=== PATIENT | female | born 1970 | race Hispanic/Latino ===

== ENCOUNTER 2020-06-09 08:24 | Inpatient (IN) | payer OTHER ==
--- OUTSIDE RECORDS SUMMARY | 2020-06-09 08:26 | XMS REPORT | Continuity of Care Document ---
:1970 Author Organization [facility] t Address [address] [place] [address] Care Team Providers Name Role Phone Melissa Gooden MD Attending Clinician Duong Logan DO Attending Clinician Doctor Unassigned, Name Attending Clinician Unavailable Problems This patient has no known problems. Allergies, Adverse Reactions, Alerts This patient has no known allergies or adverse reactions. Medications This patient has no known medications. Procedures This patient has no known procedures. Encounters Start End Encounter Admission Attending Care Care Encounter Source Date/Time Date/Time Type Type Clinicians Facility Department ID 2020-05-27 2020-05-27 [facility] [id number] 15:30:00 23:59:00 Encounter Marcelo [id number] [facility] [id number] [place] [id number] 2020-05-27 2020-05-27 [facility] Melissa Gooden [facility] [id number] 14:37:38 15:29:00 Encounter Marcelo [id number] [facility] [id number] Jenkins [id number] 2020-05-20 2020-05-20 Patient АЛЕКСАНДР Logan [id number] 00:00:00 00:00:00 Outreach Duong BENJAMIN [id number] [place] [facility] [id number] [place] [id number] 2020-05-05 2020-05-05 [facility] Melissa Gooden [facility] [id number] 11:45:00 23:59:00 Encounter Health [id number] [place] [id number] [place] [id number] Medical [address] 2020-05-05 2020-05-05 Letter Doctor RACIEL [id number] 00:00:00 00:00:00 (Out) Unassigned, YOLANDA [id number] [place] [facility] [id number] 2019-12-17 2019-12-17 Orders Doctor RACIEL [id number] 00:00:00 00:00:00 Only Unassigned, YOLANDA [id number] [place] [id number] 2019-12-06 2019-12-06 Orders Doctor RACIEL [id number] 00:00:00 00:00:00 Only Unassigned, YOLANDA [id number] [place] [facility] [id number] Results This patient has no known results.
[2020-06-09] MEDS ORDERED: AZITHROMYCIN IV 500 MG in NA CHLORIDE 0.9% 250 ML IVPB ONE (09:00)
[2020-06-09 09:03] LABS: Absolute Lymphocytes (CBC) 0.6 K/uL (0.7-4.9); Basophils % 0.1 % (0-1.3); Hematocrit 45.8 % (36.0-45.0); Lymphocytes % 5.5 % (15.3-44.8); MPV 8.9 fL (7.6-11.3); RBC Red Blood Cell Count 5.36 M/uL (3.86-4.86)
[2020-06-09 09:13] LABS: Protime INR 1.31
[2020-06-09] MEDS ORDERED: ENOXAPARIN 80 MG/0.8 ML SQ ONE (09:13)
[2020-06-09] MEDS ORDERED: ACETAMINOPHEN 500 MG TAB ONE (09:13)
[2020-06-09] MEDS ORDERED: dexAMETHasone 10 MG/ML VIAL ONE (09:13)
[2020-06-09] MEDS ORDERED: ASPIRIN 81 MG CHEWABLE TABLET ONE (09:13)
[2020-06-09] MEDS ORDERED: CEFTRIAXONE/SWI 1gm 1 GM/10 ML SYR ONE (09:14)
[2020-06-09] MEDS ORDERED: FAMOTIDINE 20 MG/2 ML VIAL IV ONE (09:14)
[2020-06-09] MEDS ORDERED: ALBUTEROL INHALER 60 PUFF/8 GM IH ONE (09:14)
--- NOTE | 2020-06-09 09:33 | ER ---
Nurse's Notes [facility] Name: Isabel Cottrell Age: 50 yrs Sex: Female : 1970 Arrival Date: 06/09/2020 Time: 08:26 Bed 7 Private MD: Diagnosis: Other viral pneumonia-BILATERAL, COVID;Hypoxemia;Dyspnea;Fever, unspecified Presentation: 06/09 08:44 Chief complaint: Patient states: COVID + on Tuesday, s/s started last Tuesday, increasing iw SOB X 2 days, was 36% on RA upon arrival , pt denies chest pain, feels very anxious , is currently on abx and steroids. Coronavirus screen: Client reports previous positive COVID test result. Ebola Screen: Patient negative for fever greater than or equal to 101.5 degrees Fahrenheit, and additional compatible Ebola Virus Disease symptoms Patient denies exposure to infectious person. Patient denies travel to an Ebola-affected area in the 21 days before illness onset. No symptoms or risks identified at this time. 08:44 Method Of Arrival: Wheelchair iw 08:48 Initial Sepsis Screen: Does the patient meet any 2 criteria? Yes Does the patient have iw a suspected source of infection?. Risk Assessment: Do you want to hurt yourself or someone else? Patient reports no desire to harm self or others. Onset of symptoms was May 30, 2020. 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 Flu vaccine is up to date. - Social history:: Smoking status: Patient denies any tobacco usage or history of. - Family history:: not pertinent. Screenin:45 Abuse screen: Denies threats or abuse. Denies injuries from another. Nutritional jl7 screening: No deficits noted. Tuberculosis screening: No symptoms or risk factors identified. Fall Risk IV access (20 points). Total Stern Fall Scale indicates No Risk (0-24 pts). Assessment: 08:40 General: Appears distressed, uncomfortable, ill, Behavior is cooperative, appropriate jl7 for age, anxious. Pain: Denies pain. Neuro: Level of Consciousness is awake, alert, obeys commands, Oriented to person, place, time, situation. Cardiovascular: Patient's skin is warm and dry. Rhythm is sinus rhythm. Respiratory: Airway is patent Respiratory effort is even, labored, with nasal flaring, shallow, Respiratory pattern is symmetrical, tachypnea Breath sounds are diminished bilaterally. Derm: Skin is dry, Skin is pale, Skin temperature is warm. 10:00 Reassessment: No changes from previously documented assessment. Patient and/or family jl7 updated on plan of care and expected duration. Pain level reassessed. Patient is alert, oriented x 3, equal unlabored respirations, skin warm/dry/pink. 10:59 Reassessment: Pt placed in prone position. jl7 12:00 Reassessment: Patient appears in no apparent distress at this time. Patient and/or jl7 family updated on plan of care and expected duration. Pain level reassessed. Patient is alert, oriented x 3, equal unlabored respirations, skin warm/dry/pink. Patient states feeling better. Vital Signs: 08:44 BP 136 / 79; Pulse 104; Resp 36 S; Temp 100.5(TE); Pulse Ox 36% on R/A; Weight 86.18 iw kg; Height 5 ft. 2 in. (157.48 cm); 08:52 Pulse Ox 77% on Venturi mask; iw 09:46 BP 123 / 80; Pulse 97; Resp 29; Pulse Ox 95% on 15 lpm NC; jl7 10:59 BP 114 / 66; Pulse 89; Resp 34; Pulse Ox 95% 15% ; jl7 12:06 BP 127 / 92; Pulse 82; Resp 24; Temp 97(TE); Pulse Ox 95% on 15 lpm NC; jl7 08:44 Body Mass Index 34.75 (86.18 kg, 157.48 cm) iw ED Course: 08:26 Patient arrived in ED. as 08:35 Victor M Khanna MD is Attending Physician. ezra 08:40 EKG done, by ED staff, reviewed by Victor M Khanna MD. em1 08:41 Mandy Martinez, DELORIS is Primary Nurse. jl7 08:45 Initial lab(s) drawn, by nc, sent to lab. Inserted saline lock: 20 gauge in left jl7 antecubital area, using aseptic technique. Blood collected. 08:45 Patient has correct armband on for positive identification. Placed in gown. Bed in low jl7 position. Call light in reach. Side rails up X2. equipment monitor phototypesetting on. Pulse ox on. NIBP on. 08:48 Triage completed. iw 08:49 Arm band placed on. iw 09:25 XRAY Chest (1 view) In Process Unspecified. EDMS 09:31 Spencer Bullock is Hospitalizing Provider. ezra 12:07 No provider procedures requiring assistance completed. Patient admitted, IV remains in jl7 place. intact, No redness/swelling at site. Administered Medications: 09:08 Drug: Pepcid (famotidine) 20 mg Route: IVP; Site: left antecubital; jl7 11:00 Follow up: Response: No adverse reaction jl7 09:10 Drug: Decadron - Dexamethasone 10 mg Route: IVP; Site: left antecubital; jl7 11:01 Follow up: Response: No adverse reaction jl7 09:15 Not Given (wrong pharmacy order): Rocephin - (cefTRIAXone) 1 grams IVPB once over 30 jl7 mins; (mix in 50 mL NS) 09:16 Drug: Zithromax (azithromycin) 500 mg Route: IVPB; Infused Over: 1 hrs; Site: left jl7 antecubital; 10:16 Follow up: Response: No adverse reaction; IV Status: Completed infusion jl7 09:16 Drug: Tylenol 1000 mg Route: PO; jl7 11:01 Follow up: Response: No adverse reaction jl7 09:16 Drug: Rocephin (cefTRIAXone) 1 grams Route: IV; Rate: calculated rate; Site: left jl7 antecubital; 09:19 Follow up: Response: No adverse reaction; IV Status: Completed infusion jl7 09:17 Drug: Albuterol HFA Inhaler 4 puffs Route: Inhalation; jl7 11:01 Follow up: Response: No adverse reaction jl7 09:17 Drug: Aspirin 162 mg Route: PO; jl7 11:01 Follow up: Response: No adverse reaction jl7 09:17 Drug: Lovenox (enoxaparin) 1 mg/kg Route: Sub-Q; Site: abdomen; jl7 11:01 Follow up: Response: No adverse reaction jl7 09:35 Drug: Zofran (Ondansetron) 4 mg Route: IVP; Site: left antecubital; jl7 09:40 Follow up: Response: No adverse reaction; Nausea is decreased jl7 Outcome: 09:33 Decision to Hospitalize by Provider. ezra 12:07 Admitted to Tele accompanied by tech, room 407, with oxygen, with chart, Report called jl7 to DELORIS Peters 12:07 Condition: stable 12:07 Discharge instructions given to patient, Instructed on the need for admit, Demonstrated understanding of instructions. 12:47 Patient left the ED. jl7 Signatures: Dispatcher [employer] EDMS Victor M Khanna MD MD cha Martinez, Amelia as Williams, Irene, RN RN iw Martinez, Eric em1 Leal, Jahala, RN RN jl7 Corrections: (The following items were deleted from the chart) 12:07 10:00 Reassessment: Patient appears in no apparent distress at this time. No changes jl7 from previously documented assessment. Patient and/or family updated on plan of care and expected duration. Pain level reassessed. Patient is alert, oriented x 3, equal unlabored respirations, skin warm/dry/pink. jl7
--- NOTE | 2020-06-09 09:33 | EDPHYS ---
Physician Documentation [facility] Name: Isabel Cottrell Age: 50 yrs Sex: Female : 1970 Arrival Date: 06/09/2020 Time: 08:26 Bed 7 Private MD: ED Physician Victor M Khanna HPI: 06/09 08:43 This 50 yrs old Female presents to ER via Unassigned with complaints of ezra Shortness Of Breath - covid+. 08:43 The patient has shortness of breath at rest, with light activity. Onset: The ezra symptoms/episode began/occurred 7 day(s) ago. Duration: The symptoms are continuous, and are steadily getting worse. The patient's shortness of breath is aggravated by coughing, supine position, talking, walking, is alleviated by rest, sitting up, application of supplemental oxygen. Associated signs and symptoms: Pertinent positives: non-productive cough. Severity of symptoms: At their worst the symptoms were moderate in the emergency department the symptoms are unchanged. The patient has not experienced similar symptoms in the past. 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 Flu vaccine is up to date. - Social history:: Smoking status: Patient denies any tobacco usage or history of. - Family history:: not pertinent. ROS: 08:44 Constitutional: Negative for fever, chills, and weight loss, Eyes: Negative for injury, ezra pain, redness, and discharge, ENT: Negative for injury, pain, and discharge, Neck: Negative for injury, pain, and swelling, Cardiovascular: Negative for chest pain, palpitations, and edema, Abdomen/GI: Negative for abdominal pain, nausea, vomiting, diarrhea, and constipation, Back: Negative for injury and pain, : Negative for injury, bleeding, discharge, and swelling, MS/Extremity: Negative for injury and deformity, Skin: Negative for injury, rash, and discoloration, Neuro: Negative for headache, weakness, numbness, tingling, and seizure, Psych: Negative for depression, anxiety, suicide ideation, homicidal ideation, and hallucinations, Allergy/Immunology: Negative for hives, rash, and allergies, Endocrine: Negative for neck swelling, polydipsia, polyuria, polyphagia, and marked weight changes, Hematologic/Lymphatic: Negative for swollen nodes, abnormal bleeding, and unusual bruising. 08:44 Respiratory: Positive for cough, shortness of breath, at rest. Exam: 08:44 Constitutional: This is a well developed, well nourished patient who is awake, alert, ezra and in no acute distress. Head/Face: Normocephalic, atraumatic. Eyes: Pupils equal round and reactive to light, extra-ocular motions intact. Lids and lashes normal. Conjunctiva and sclera are non-icteric and not injected. Cornea within normal limits. Periorbital areas with no swelling, redness, or edema. ENT: Nares patent. No nasal discharge, no septal abnormalities noted. Tympanic membranes are normal and external auditory canals are clear. Oropharynx with no redness, swelling, or masses, exudates, or evidence of obstruction, uvula midline. Mucous membranes moist. Neck: Trachea midline, no thyromegaly or masses palpated, and no cervical lymphadenopathy. Supple, full range of motion without nuchal rigidity, or vertebral point tenderness. No Meningismus. Chest/axilla: Normal chest wall appearance and motion. Nontender with no deformity. No lesions are appreciated. Abdomen/GI: Soft, non-tender, with normal bowel sounds. No distension or tympany. No guarding or rebound. No evidence of tenderness throughout. Back: No spinal tenderness. No costovertebral tenderness. Full range of motion. Skin: Warm, dry with normal turgor. Normal color with no rashes, no lesions, and no evidence of cellulitis. MS/ Extremity: Pulses equal, no cyanosis. Neurovascular intact. Full, normal range of motion. Neuro: Awake and alert, GCS 15, oriented to person, place, time, and situation. Cranial nerves II-XII grossly intact. Motor strength 5/5 in all extremities. Sensory grossly intact. Cerebellar exam normal. Normal gait. Psych: Awake, alert, with orientation to person, place and time. Behavior, mood, and affect are within normal limits. 08:44 Cardiovascular: Rate: tachycardic, Rhythm: regular, Pulses: Pulses are 4+ in bilateral radial, brachial, femoral, popliteal, posterior tibial and and dorsalis pedis arteries.. Heart sounds: normal, Edema: is not appreciated, JVD: is not appreciated. 08:44 ECG was reviewed by the Attending Physician. Vital Signs: 08:44 BP 136 / 79; Pulse 104; Resp 36 S; Temp 100.5(TE); Pulse Ox 36% on R/A; Weight 86.18 iw kg; Height 5 ft. 2 in. (157.48 cm); 08:52 Pulse Ox 77% on Venturi mask; iw 09:46 BP 123 / 80; Pulse 97; Resp 29; Pulse Ox 95% on 15 lpm NC; jl7 10:59 BP 114 / 66; Pulse 89; Resp 34; Pulse Ox 95% 15% ; jl7 12:06 BP 127 / 92; Pulse 82; Resp 24; Temp 97(TE); Pulse Ox 95% on 15 lpm NC; jl7 08:44 Body Mass Index 34.75 (86.18 kg, 157.48 cm) iw MDM: 08:39 Patient medically screened. ezra 08:47 Differential diagnosis: Anemia Anxiety Reaction asthma, Bronchitis CHF exacerbation, ezra Chronic Obstructive Pulmonary Disease obstructed airway, bronchitis, flu, pneumonia, pulmonary edema, Pulmonary Embolism reactive airway disease, Sepsis Unstable Angina. Antibiotic administration: Rocephin and Zithromax given. The patient's Wells Deep Vein Thrombosis Score was calculated as follows: Heart Rate >100 BPM (1.5 Pts) Total Score: 0-2 Pts- Low Risk. Differential Diagnosis: Bronchitis Influenza Upper Respiratory Infection Sinusitis Pharyngitis Viral Syndrome Pneumonia. The patient's pulmonary embolism risk score was calculated as follows: the patients heart rate is greater than 100 beats per minute (1.5 Pts) Total Score: 0-2 points. This patient was found to be at low risk for a pulmonary embolism by using the Well's assessment criteria. Immunization status: Influenza vaccine: Data reviewed: vital signs, nurses notes, lab test result(s), EKG, radiologic studies, CT scan, plain films. Data interpreted: quality assurance monitor: rate is 104 beats/min, rhythm is regular. Test interpretation: by ED physician or midlevel provider: ECG, plain radiologic studies. Counseling: I had a detailed discussion with the patient and/or guardian regarding: the historical points, exam findings, and any diagnostic results supporting the discharge/admit diagnosis, lab results, radiology results, the need for further work-up and treatment in the hospital. 06/09 08:37 Order name: Basic Metabolic Panel [facility] 06/09 08:37 Order name: CBC with Diff [facility] 06/09 08:37 Order name: LFT's [facility] 06/09 08:37 Order name: Magnesium [facility] 06/09 08:37 Order name: NT PRO-BNP [facility] 06/09 08:37 Order name: PT-INR; Complete Time: 09:31 [facility] 06/09 08:37 Order name: Troponin (emerg Dept Use Only) [facility] 06/09 08:37 Order name: XRAY Chest (1 view) [facility] 06/09 08:37 Order name: Blood Culture Adult (2) [facility] 06/09 08:37 Order name: Ferritin [facility] 06/09 08:37 Order name: CRP [facility] 06/09 08:38 Order name: Basic Metabolic Panel [facility] 06/09 09:09 Order name: CBC Smear Scan [facility] 06/09 08:37 Order name: EKG; Complete Time: 08:38 [facility] 06/09 08:37 Order name: Cardiac monitoring; Complete Time: 08:58 [facility] 06/09 08:37 Order name: EKG - Nurse/Tech; Complete Time: 08:40 [facility] 06/09 08:37 Order name: IV Saline Lock; Complete Time: 08:58 [facility] 06/09 08:37 Order name: Labs collected and sent; Complete Time: 08:58 [facility] 06/09 08:37 Order name: O2 Per Protocol; Complete Time: 08:58 [facility] 06/09 08:37 Order name: O2 Sat Monitoring; Complete Time: 08:58 [facility] EC:44 Rate is 104 beats/min. Rhythm is regular. QRS [place] is Normal. MT interval is normal. ezra QRS interval is normal. QT interval is normal. No Q waves. T waves are Normal. ST Segment is depressed in leads I, II, III, aVL, aVF. Clinical impression: NSR w/ Non-specific ST/T Changes and Sinus tachycardia. Interpreted by me. Reviewed by me. Administered Medications: 09:08 Drug: Pepcid (famotidine) 20 mg Route: IVP; Site: left antecubital; jl7 11:00 Follow up: Response: No adverse reaction jl7 09:10 Drug: Decadron - Dexamethasone 10 mg Route: IVP; Site: left antecubital; jl7 11:01 Follow up: Response: No adverse reaction jl7 09:15 Not Given (wrong pharmacy order): Rocephin - (cefTRIAXone) 1 grams IVPB once over 30 jl7 mins; (mix in 50 mL NS) 09:16 Drug: Zithromax (azithromycin) 500 mg Route: IVPB; Infused Over: 1 hrs; Site: left jl7 antecubital; 10:16 Follow up: Response: No adverse reaction; IV Status: Completed infusion jl7 09:16 Drug: Tylenol 1000 mg Route: PO; jl7 11:01 Follow up: Response: No adverse reaction jl7 09:16 Drug: Rocephin (cefTRIAXone) 1 grams Route: IV; Rate: calculated rate; Site: left jl7 antecubital; 09:19 Follow up: Response: No adverse reaction; IV Status: Completed infusion jl7 09:17 Drug: Albuterol HFA Inhaler 4 puffs Route: Inhalation; jl7 11:01 Follow up: Response: No adverse reaction jl7 09:17 Drug: Aspirin 162 mg Route: PO; jl7 11:01 Follow up: Response: No adverse reaction jl7 09:17 Drug: Lovenox (enoxaparin) 1 mg/kg Route: Sub-Q; Site: abdomen; jl7 11:01 Follow up: Response: No adverse reaction jl7 09:35 Drug: Zofran (Ondansetron) 4 mg Route: IVP; Site: left antecubital; jl7 09:40 Follow up: Response: No adverse reaction; Nausea is decreased jl7 Disposition: 06/09/20 09:33 Hospitalization ordered by Spencer Bullock for Inpatient Admission. Preliminary diagnosis are Other viral pneumonia - BILATERAL, COVID, Hypoxemia, Dyspnea, Fever, unspecified. - Bed requested for Telemetry/MedSurg (Inpatient). - Status is Inpatient Admission. jl7 - Condition is Fair. - Problem is new. - Symptoms have improved. Signatures: Dispatcher [employer] EDMS Linette Guerrero Corey, MD MD cha Williams, Irene, RN RN iw Mandy Martinez RN RN jl7 Corrections: (The following items were deleted from the chart) 09:34 09:33 Hospitalization Ordered by Spencer Bullock for Inpatient Admission. Preliminary ezra diagnosis is Other viral pneumonia - BILATERAL, COVID; Hypoxemia; Dyspnea. Bed requested for Telemetry/MedSurg (Inpatient). Status is Inpatient Admission. Condition is Fair. Problem is new. Symptoms have improved. ezra 11:59 09:34 06/09/2020 09:33 Hospitalization Ordered by Spencer Bullock for Inpatient bd Admission. Preliminary diagnosis is Other viral pneumonia - BILATERAL, COVID; Hypoxemia; Dyspnea; Fever, unspecified. Bed requested for Telemetry/MedSurg (Inpatient). Status is Inpatient Admission. Condition is Fair. Problem is new. Symptoms have improved. ezra 12:47 11:59 06/09/2020 09:33 Hospitalization Ordered by Spencer Bullock for Inpatient jl7 Admission. Preliminary diagnosis is Other viral pneumonia - BILATERAL, COVID; Hypoxemia; Dyspnea; Fever, unspecified. Bed requested for Telemetry/MedSurg (Inpatient). Status is Inpatient Admission. Condition is Fair. Problem is new. Symptoms have improved. bd
[2020-06-09 09:37] LABS: Blood Morphology Comment NOT SEEN (NOT SEEN); Platelet Estimate ADEQ; White Blood Cell Scan OK (OK)
[2020-06-09 09:39] LABS: ALT/SGPT 53 U/L (12-78); Alkaline Phosphatase 62 U/L (45-117); BUN Blood Urea Nitrogen 8 mg/dL (7-18); Bicarbonate 26 mmol/L (21-32); Bilirubin Direct 0.2 mg/dL (0-0.2); Bilirubin Total 0.4 mg/dL (0.2-1.0); Ferritin 632.1 ng/mL (8-388); Glucose Level 158 mg/dL (74-106); NT PRO-BNP 237 pg/mL (<125); Sodium Level 134 mmol/L (136-145); Troponin (Emerg Dept Use Only) < 0.02 ng/mL (0.0-0.045)
[2020-06-09 09:40] LABS: AST/SGOT 57 U/L (15-37); Magnesium 1.9 mg/dL (1.8-2.4); Potassium 3.3 mmol/L (3.5-5.1)
[2020-06-09] MEDS ORDERED: ONDANSETRON 4 MG/2 ML VIAL ONE (09:42)
--- NOTE | 2020-06-09 09:46 | RAD REPORT ---
EXAM DESCRIPTION: Twin Single View06/09/2020 9:25 am CLINICAL HISTORY: Shortness of breath COMPARISON: none FINDINGS: Moderate to marked bilateral pulmonary opacities. Heart is normal size IMPRESSION: Moderate to marked bilateral pulmonary opacities may represent pulmonary edema or pneumo paresh
--- NOTE | 2020-06-09 11:10 | P.HP ---
Certification for Inpatient Patient admitted to: Inpatient With expected LOS: >2 Midnights Practitioner: I am a practitioner with admitting privileges, knowledge of patient current condition, hospital course, and medical plan of care. Services: Services provided to patient in accordance with Admission requirements found in Title 42 Section 412.3 of the Code of Federal Regulations Patient History Date of Service: 06/09/20 Reason for admission: Shortness of breath History of Present Illness: 50-year-old woman with borderline diabetes and borderline hypertension presented to the emergency department with a complaint of shortness of breath of onset 3 days ago. Patient stated he tested positive for COVID 19 1 week ago. She developed fever, followed by loss of sense of smell and a hacking cough which resolved. She then developed shortness of breath 2 days later with became progressively worse. Her oxygen saturation on arrival was 36% on room air per report. Chest x-ray done in the emergency department demonstrated bilateral infiltrates. Patient was requiring high-flow oxygen in the ED and was saturating at 92 %. Patient given a dose of IV dexamethasone, IV Rocephin and Zithromax. She is admitted for further management. Allergies No Known Allergies Allergy (Unverified 06/09/20 08:58) - Past Medical/Surgical History -: None -: Cholecystectomy -: section - Family History Father -: Diabetes Mother -: Diabetes - Social History Smoking Status: Never smoker Alcohol use: Yes CD- Drugs: No Place of Residence: Home Review of Systems Other: Except as documented, all other systems reviewed and negative. Physical Examination - Physical Exam General: Alert, In no apparent distress, Oriented x3 HEENT: PERRLA, Other (High-flow oxygen), EOMI, Sclerae nonicteric Neck: Supple, JVD not distended Respiratory: Normal air movement, Crackles/rales (Bilateral) Cardiovascular: No edema, Regular rate/rhythm, Normal S1 S2 Gastrointestinal: Soft and benign, Non-distended, No tenderness Musculoskeletal: No swelling, No tenderness Integumentary: No rashes, No erythema Neurological: Normal speech, Normal strength at 5/5 x4 extr, Cranial nerves 3-12 intact - Studies Laboratory Data (last 24 hrs) 06/09/20 08:55: PT 15.1 H, INR 1.31 06/09/20 08:55: WBC 11.60 H, Hgb 15.4 H, Hct 45.8 H, Plt Count 326 06/09/20 08:55: Sodium 134 L, Potassium 3.3 L, BUN 8, Creatinine 1.05, Glucose 158 H, Magnesium 1.9, Total Bilirubin 0.4, AST 57 H, ALT 53, Alkaline Phosphatase 62 Assessment and Plan - Problems (Diagnosis) (1) Pneumonia due to COVID-19 virus Current Visit: Yes Status: Acute (2) Acute respiratory failure with hypoxia Current Visit: Yes Status: Acute (3) Hyperglycemia Current Visit: Yes Status: Acute - Plan Admit to the medical floor. Start IV methylprednisolone. Vitamin-C, vitamin-D, zinc supplementation. Respiratory therapy to evaluate. Continue high-flow oxygen and wean as tolerated. Consult to pulmonary. Pharmacy to evaluate for Remdesivir therapy. Will order 1 unit convalescent plasma. GI prophylaxis with IV Pepcid. Start Eliquis for thromboembolism prophylaxis. Monitor blood sugar and use Insulin sliding scale to manage hyperglycemia. Obtain hemoglobin A1c. Monitor inflammatory markers. - Advance Directives Does patient have a Living Will: No Does patient have a Durable POA for Healthcare: No
[2020-06-09] MEDS ORDERED: D50W 25 GM/50 ML SYRINGE IV PRN (12:46)
[2020-06-09] MEDS ORDERED: DIPHENHYDRAMINE 50 MG/ML VIAL IV ONE (12:46)
[2020-06-09] MEDS ORDERED: ACETAMINOPHEN 325 MG TABLET PO ONE (12:46)
[2020-06-09] MEDS ORDERED: GLUCAGON 1 MG/VIAL IM PRN (12:46)
[2020-06-09] MEDS ORDERED: NA CHLORIDE 0.9% 250 ML IV ONE (12:46)
[2020-06-09] MEDS ORDERED: ACETAMINOPHEN 500 MG TAB PO PRN (12:46)
[2020-06-09] MEDS ORDERED: ONDANSETRON 4 MG/2 ML VIAL IV PRN (12:46)
[2020-06-09] MEDS: INSULIN -REGULAR HUMAN 50 UNIT/0.5 ML ML SQ SCH ×3 (12:46→20:49)
[2020-06-09 13:45] VITALS: BMI 33.8
[2020-06-09] MEDS ORDERED: D50W 25 GM/50 ML VIAL IV PRN (15:00)
[2020-06-09] MEDS ORDERED: Remdesivir 200 MG in NA CHLORIDE 0.9% 250 ML IV ONE (15:00)
[2020-06-09] MEDS: ASCORBIC ACID 500 MG TABLET PO SCH ×2 (15:24→20:48)
[2020-06-09] MEDS: METHYLPREDNISOLONE 125 MG INJ IV SCH (20:48)
[2020-06-09] MEDS: APIXABAN 5 MG TABLET PO SCH (20:48)
[2020-06-09] MEDS: FAMOTIDINE 20 MG/2 ML VIAL IV SCH (20:50)
[2020-06-10 04:03] LABS: Absolute Lymphocytes (CBC) 0.7 K/uL (0.7-4.9); Basophils % 0.1 % (0-1.3); Hematocrit 40.7 % (36.0-45.0); Lymphocytes % 7.8 % (15.3-44.8); MPV 9.3 fL (7.6-11.3); RBC Red Blood Cell Count 4.76 M/uL (3.86-4.86)
[2020-06-10 04:29] LABS: Ferritin 679.5 ng/mL (8-388); Magnesium 2.4 mg/dL (1.8-2.4); Phosphorus 3.1 mg/dL (2.5-4.9)
[2020-06-10 05:02] LABS: Potassium 3.7 mmol/L (3.5-5.1)
[2020-06-10] MEDS ORDERED: POTASSIUM CL SA 10 MEQ TAB PO ONE (05:30)
[2020-06-10] MEDS: INSULIN -REGULAR HUMAN 50 UNIT/0.5 ML ML SQ SCH ×4 (08:07→21:00)
[2020-06-10] MEDS: ASCORBIC ACID 500 MG TABLET PO SCH ×3 (08:08→20:21)
[2020-06-10] MEDS: FAMOTIDINE 20 MG/2 ML VIAL IV SCH ×2 (08:08→20:21)
[2020-06-10] MEDS: ZINC SULFATE 220 MG CAP PO SCH (08:08)
[2020-06-10] MEDS: VITAMIN D 1000 UNIT TAB PO SCH (08:08)
[2020-06-10] MEDS: APIXABAN 5 MG TABLET PO SCH ×2 (08:08→20:20)
[2020-06-10] MEDS: METHYLPREDNISOLONE 125 MG INJ IV SCH ×2 (08:09→20:21)
[2020-06-10 08:18] LABS: Albumin 2.6 g/dL (3.4-5.0); Bilirubin Direct 0.1 mg/dL (0-0.2); Bilirubin Total 0.3 mg/dL (0.2-1.0); Protein, Total 7.2 g/dL (6.4-8.2)
[2020-06-10] MEDS: Remdesivir 100 MG in NA CHLORIDE 0.9% 250 ML IV SCH (08:55)
[2020-06-10] MEDS: BENZONATATE 100 MG CAP PO PRN ×2 (10:22→17:58)
--- NOTE | 2020-06-10 12:33 | P.PN ---
Subjective Date of Service: 06/10/20 Chief Complaint: Shortness of breath Subjective: Improving (Feels like she is breathing slightly better this morning, still requiring 40lpm of high-flow nasal cannula. Reports some coughing fits, and shortness of breath with mild exertion. Tolerating prone position) Review of Systems 10-point ROS is otherwise unremarkable Physical Examination - Vital Signs Temperature: 70 F Blood Pressure: 115/69 Pulse: 69 Respirations: 22 Pulse Ox (%): 93 Assessment & Plan Physician Review Additional Text: Physical Exam General: Alert, NAD HEENT: sclera anicteric, normal conjunctiva, HFNC in place Respiratory: nonlabored respirations, slight tachypnea on HFNC 40LPM 100% FiO2 Cardiovascular: No edema, Regular rate/rhythm, Normal S1 S2 Gastrointestinal: Soft and benign, Non-distended, No tenderness Musculoskeletal: No swelling, No tenderness Integumentary: No rashes, No erythema Neurological: Normal speech, Normal strength Problem List Acute respiratory failure with hypoxia secondary to COVID-19 pneumonia Hyperglycemia, steroid induced -continue IV solumedrol, vitamin supplements -wean O2 as tolerated -Pulm consulted, Remdesevir and conv. plasma ordered -continue eliquis for VTE prophylaxis -titrate insulin as needed for hyperglycemia -worsened by steroids -CRP significantly elevated, slight improvement this morning VTE: eliquis Code: full Dispo: anticipate dc home in 3-4 days, will likely need home O2 Time Spent Managing Pts Care (In Minutes): 35
[2020-06-11 04:08] LABS: Absolute Lymphocytes (CBC) 0.7 K/uL (0.7-4.9); Basophils % 0.2 % (0-1.3); Hematocrit 40.2 % (36.0-45.0); Lymphocytes % 4.5 % (15.3-44.8); RBC Red Blood Cell Count 4.74 M/uL (3.86-4.86)
[2020-06-11 05:16] LABS: Albumin 2.6 g/dL (3.4-5.0); Bilirubin Direct 0.1 mg/dL (0-0.2); Bilirubin Total 0.3 mg/dL (0.2-1.0); C-Reactive Protein 92.7 mg/L (<3.00); Ferritin 876.1 ng/mL (8-388); Protein, Total 6.8 g/dL (6.4-8.2)
[2020-06-11 07:57] LABS: Magnesium 2.5 mg/dL (1.8-2.4); Potassium 3.5 mmol/L (3.5-5.1)
[2020-06-11] MEDS: Remdesivir 100 MG in NA CHLORIDE 0.9% 250 ML IV SCH (09:19)
[2020-06-11] MEDS: INSULIN -REGULAR HUMAN 50 UNIT/0.5 ML ML SQ SCH ×4 (09:19→21:42)
[2020-06-11] MEDS: APIXABAN 5 MG TABLET PO SCH ×2 (09:20→21:41)
[2020-06-11] MEDS: BENZONATATE 100 MG CAP PO PRN ×2 (09:20→17:23)
[2020-06-11] MEDS: VITAMIN D 1000 UNIT TAB PO SCH (09:20)
[2020-06-11] MEDS: ASCORBIC ACID 500 MG TABLET PO SCH ×3 (09:20→21:40)
[2020-06-11] MEDS: ZINC SULFATE 220 MG CAP PO SCH (09:20)
[2020-06-11] MEDS: FAMOTIDINE 20 MG/2 ML VIAL IV SCH ×2 (09:21→21:42)
[2020-06-11] MEDS: METHYLPREDNISOLONE 125 MG INJ IV SCH ×2 (09:21→21:42)
--- NOTE | 2020-06-11 12:50 | P.CNS ---
Date of Consult: 06/11/20 Chief Complaint: respiratory failure from hunter virus History of Present Illness: patient is 50 years of age with a history of diabetes hypertension presented with acute onset of shortness of breath she was tested for hunter virus about a week ago developed some fever loss of smell taste hacking cough came in very hypoxic she is actually improving oxygen requirements are declining feeling better Allergies No Known Allergies Allergy (Unverified 06/09/20 08:58) Home Medications: NK [No Home Meds] 06/09/20 - Past Medical/Surgical History Diabetic: No -: None -: Cholecystectomy -: section - Family History Father Medical History: Stroke Mother Medical History: Diabetes - Social History Alcohol use: Yes CD- Drugs: No Caffeine use: No Place of Residence: Home Review of Systems General: Weakness Respiratory: Cough, Shortness of Breath Physical Examination Temp Pulse Resp BP Pulse Ox 97.4 F 75 18 129/87 92 06/11/20 12:00 06/11/20 12:00 06/11/20 12:00 06/11/20 12:00 06/11/20 12:00 - Problems (1) Pneumonia due to COVID-19 virus Current Visit: Yes Status: Acute Plan: patient is 50 years of age admitted with respiratory failure from hunter virus patient is clinically improving labs reviewed white count is mildly elevated continue to titrate O2 down encourage prone positioning had ivermectin multi vitamins
[2020-06-11] MEDS: IVERMECTIN 3 MG TABLET PO SCH (13:27)
--- NOTE | 2020-06-11 14:32 | P.PN ---
Subjective Date of Service: 06/11/20 Chief Complaint: respiratory failure from hunter virus Subjective: Improving (Breathing a little bit more comfortably today, oxygen requirement improving. Reports with mild anxiety/panic attack yesterday. Coughing improved) Review of Systems 10-point ROS is otherwise unremarkable Physical Examination - Vital Signs Temperature: 97.4 F Blood Pressure: 129/87 Pulse: 75 Respirations: 18 Pulse Ox (%): 92 Assessment & Plan Physician Review Additional Text: Physical Exam General: Alert, NAD HEENT: sclera anicteric, normal conjunctiva, HFNC in place Respiratory: nonlabored respirations, slight tachypnea on HFNC 40LPM 85% FiO2 Cardiovascular: No edema, Regular rate/rhythm, Normal S1 S2 Gastrointestinal: Soft and benign, Non-distended, No tenderness Musculoskeletal: No swelling, No tenderness Integumentary: No rashes, No erythema Neurological: Normal speech, Normal strength Problem List Acute respiratory failure with hypoxia secondary to COVID-19 pneumonia Hyperglycemia, steroid induced -continue IV solumedrol, vitamin supplements -wean O2 as tolerated -Pulm consulted, Remdesevir and conv. plasma ordered -continue eliquis for VTE prophylaxis -titrate insulin as needed for hyperglycemia -worsened by steroids -CRP significantly elevated, but improving now VTE: eliquis Code: full Dispo: anticipate dc home in ~3-4 days, will likely need home O2 Time Spent Managing Pts Care (In Minutes): 35
[2020-06-11] MEDS: THIAMINE HCL 100 MG TABLET PO SCH (21:40)
[2020-06-11] MEDS: MELATONIN 5 MG TABLET PO SCH (21:41)
[2020-06-12 03:58] LABS: Absolute Lymphocytes (CBC) 0.6 K/uL (0.7-4.9); Hematocrit 39.7 % (36.0-45.0); Lymphocytes % 4.2 % (15.3-44.8); MPV 8.6 fL (7.6-11.3); RBC Red Blood Cell Count 4.66 M/uL (3.86-4.86)
[2020-06-12 04:16] LABS: Albumin 2.5 g/dL (3.4-5.0); Bilirubin Direct 0.1 mg/dL (0-0.2); Bilirubin Total 0.4 mg/dL (0.2-1.0); C-Reactive Protein 38.7 mg/L (<3.00); Ferritin 603.7 ng/mL (8-388); Potassium 3.8 mmol/L (3.5-5.1); Protein, Total 6.2 g/dL (6.4-8.2)
[2020-06-12] MEDS: INSULIN -REGULAR HUMAN 50 UNIT/0.5 ML ML SQ SCH ×4 (07:30→21:51)
[2020-06-12] MEDS: THIAMINE HCL 100 MG TABLET PO SCH ×2 (08:34→20:19)
[2020-06-12] MEDS: METHYLPREDNISOLONE 125 MG INJ IV SCH ×2 (08:34→20:20)
[2020-06-12] MEDS: ZINC SULFATE 220 MG CAP PO SCH (08:35)
[2020-06-12] MEDS: VITAMIN D 1000 UNIT TAB PO SCH (08:35)
[2020-06-12] MEDS: ASCORBIC ACID 500 MG TABLET PO SCH ×3 (08:35→20:19)
[2020-06-12] MEDS: APIXABAN 5 MG TABLET PO SCH ×2 (08:35→20:19)
[2020-06-12] MEDS: Remdesivir 100 MG in NA CHLORIDE 0.9% 250 ML IV SCH (08:35)
[2020-06-12] MEDS: FAMOTIDINE 20 MG/2 ML VIAL IV SCH ×2 (08:35→20:20)
[2020-06-12] MEDS ORDERED: POTASSIUM CL SA 10 MEQ TAB PO ONE (09:00)
[2020-06-12] MEDS ORDERED: ZINC SULFATE 220 MG CAP PO SCH (09:00)
--- NOTE | 2020-06-12 16:12 | P.PN ---
Subjective Date of Service: 06/12/20 Chief Complaint: respiratory failure from hunter virus Subjective: Improving (Oxygen requirements slowly decreasing, still with dyspnea, requiring high-flow nasal cannula) Review of Systems 10-point ROS is otherwise unremarkable Physical Examination - Vital Signs Temperature: 97.5 F Blood Pressure: 137/86 Pulse: 82 Respirations: 22 Pulse Ox (%): 95 Assessment & Plan Physician Review Additional Text: Physical Exam General: Alert, NAD HEENT: sclera anicteric, normal conjunctiva, HFNC in place Respiratory: nonlabored respirations on HFNC 40LPM 75% FiO2 Cardiovascular: No edema, Regular rate/rhythm, Normal S1 S2 Gastrointestinal: Soft and benign, Non-distended, No tenderness Musculoskeletal: No swelling, No tenderness Integumentary: No rashes, No erythema Neurological: Normal speech, Normal strength Problem List Acute respiratory failure with hypoxia secondary to COVID-19 pneumonia Hyperglycemia, steroid induced -continue IV solumedrol, vitamin supplements -wean O2 as tolerated -Pulm consulted, on Remdesevir -continue eliquis for VTE prophylaxis -titrate insulin as needed for hyperglycemia -worsened by steroids -CRP significantly elevated on admission, but improving -hopefully can trial nasal cannula tomorrow VTE: eliquis Code: full Dispo: anticipate dc home in ~3-4 days, will likely need home O2 Time Spent Managing Pts Care (In Minutes): 35
[2020-06-12] MEDS: MELATONIN 5 MG TABLET PO SCH (20:19)
[2020-06-13 04:31] LABS: Potassium 3.8 mmol/L (3.5-5.1)
[2020-06-13] MEDS: INSULIN -REGULAR HUMAN 50 UNIT/0.5 ML ML SQ SCH ×4 (07:30→20:31)
[2020-06-13] MEDS: THIAMINE HCL 100 MG TABLET PO SCH ×2 (08:36→20:27)
[2020-06-13] MEDS: FAMOTIDINE 20 MG/2 ML VIAL IV SCH ×2 (08:36→20:28)
[2020-06-13] MEDS: ZINC SULFATE 220 MG CAP PO SCH (08:36)
[2020-06-13] MEDS: Remdesivir 100 MG in NA CHLORIDE 0.9% 250 ML IV SCH (08:36)
[2020-06-13] MEDS: ASCORBIC ACID 500 MG TABLET PO SCH ×3 (08:36→20:26)
[2020-06-13] MEDS: APIXABAN 5 MG TABLET PO SCH ×2 (08:36→20:28)
[2020-06-13] MEDS: METHYLPREDNISOLONE 125 MG INJ IV SCH ×2 (08:36→20:28)
[2020-06-13] MEDS: VITAMIN D 1000 UNIT TAB PO SCH (08:36)
[2020-06-13] MEDS: IVERMECTIN 3 MG TABLET PO SCH (13:05)
--- NOTE | 2020-06-13 15:34 | P.PN ---
Subjective Date of Service: 06/13/20 Chief Complaint: respiratory failure from hunter virus Subjective: Improving (Slowly improving, her oxygen requirement decreasing, reports some anxiety) Review of Systems 10-point ROS is otherwise unremarkable Physical Examination - Vital Signs Temperature: 98 F Blood Pressure: 150/86 Pulse: 82 Respirations: 24 Pulse Ox (%): 98 Assessment & Plan Physician Review Additional Text: Physical Exam General: Alert, NAD HEENT: sclera anicteric, normal conjunctiva, HFNC in place Respiratory: nonlabored respirations on HFNC 70% FiO2 Cardiovascular: No edema, Regular rate/rhythm, Normal S1 S2 Gastrointestinal: Soft and benign, Non-distended, No tenderness Musculoskeletal: No swelling, No tenderness Integumentary: No rashes, No erythema Neurological: Normal speech, Normal strength Problem List Acute respiratory failure with hypoxia secondary to COVID-19 pneumonia Hyperglycemia, steroid induced -continue IV solumedrol, vitamin supplements -wean O2 as tolerated -Pulm consulted, on Remdesevir -continue eliquis for VTE prophylaxis -titrate insulin as needed for hyperglycemia -worsened by steroids -CRP significantly elevated on admission, but improving -hopefully can trial nasal cannula in the next day or 2 VTE: eliquis Code: full Dispo: anticipate dc home in ~3-4 days, will need home O2 Time Spent Managing Pts Care (In Minutes): 35
[2020-06-13] MEDS: MELATONIN 5 MG TABLET PO SCH (20:26)
[2020-06-14 04:47] LABS: Albumin 2.6 g/dL (3.4-5.0); Bilirubin Total 0.7 mg/dL (0.2-1.0); C-Reactive Protein 81.2 mg/L (<3.00); Ferritin 401.5 ng/mL (8-388); Protein, Total 6.2 g/dL (6.4-8.2)
[2020-06-14] MEDS: INSULIN -REGULAR HUMAN 50 UNIT/0.5 ML ML SQ SCH ×4 (07:30→20:34)
[2020-06-14] MEDS: METHYLPREDNISOLONE 125 MG INJ IV SCH ×2 (10:47→20:30)
[2020-06-14] MEDS: FAMOTIDINE 20 MG/2 ML VIAL IV SCH ×2 (10:49→20:30)
[2020-06-14] MEDS: VITAMIN D 1000 UNIT TAB PO SCH (10:49)
[2020-06-14] MEDS: THIAMINE HCL 100 MG TABLET PO SCH ×2 (10:50→20:31)
[2020-06-14] MEDS: APIXABAN 5 MG TABLET PO SCH ×2 (10:50→20:31)
[2020-06-14] MEDS: ASCORBIC ACID 500 MG TABLET PO SCH ×3 (10:50→20:31)
[2020-06-14] MEDS: ZINC SULFATE 220 MG CAP PO SCH (10:51)
[2020-06-14] MEDS: LORazepam 2 MG/ML VIAL IV PRN (11:18)
--- NOTE | 2020-06-14 17:23 | P.PN ---
Subjective Date of Service: 06/14/20 Chief Complaint: respiratory failure from hunter virus Subjective: Improving (Continues with anxiety, had a panic attack overnight. States she is a very anxious person. Otherwise improving, oxygen requirement decreasing) Physical Examination - Vital Signs Temperature: 97.6 F Blood Pressure: 143/87 Pulse: 96 Respirations: 21 Pulse Ox (%): 99 - Studies Microbiology Data (last 24 hrs): 06/09/20 08:55 Blood - Blood Aerobic Blood Culture - Final No growth in 5 days. 06/09/20 08:55 Blood - Blood Anaerobic Blood Culture - Final No growth in 5 days. 06/09/20 08:50 Blood - Blood Aerobic Blood Culture - Final No growth in 5 days. 06/09/20 08:50 Blood - Blood Anaerobic Blood Culture - Final No growth in 5 days. Assessment & Plan Physician Review Additional Text: Physical Exam General: Alert, NAD, anxious HEENT: sclera anicteric, normal conjunctiva Respiratory: nonlabored respirations on HFNC Cardiovascular: No edema, Regular rate/rhythm, Normal S1 S2 Gastrointestinal: Soft and benign, Non-distended, No tenderness Musculoskeletal: No swelling, No tenderness Integumentary: No rashes, No erythema Neurological: Normal speech, Normal strength Problem List Acute respiratory failure with hypoxia secondary to COVID-19 pneumonia Hyperglycemia, steroid induced -continue IV solumedrol, vitamin supplements -wean O2 as tolerated -Pulm consulted, on Remdesevir -continue eliquis for VTE prophylaxis -titrate insulin as needed for hyperglycemia -worsened by steroids -Inflammatory markers are improving -hopefully can trial nasal cannula in the next day or 2 VTE: eliquis Code: full Dispo: anticipate dc home, will need home O2, likely ~3-4 days Time Spent Managing Pts Care (In Minutes): 35
[2020-06-14] MEDS: MELATONIN 5 MG TABLET PO SCH (20:32)
[2020-06-15 05:05] LABS: Absolute Lymphocytes (CBC) 0.5 K/uL (0.7-4.9); Basophils % 0.4 % (0-1.3); Lymphocytes % 2.6 % (15.3-44.8); MPV 8.3 fL (7.6-11.3); RBC Red Blood Cell Count 4.75 M/uL (3.86-4.86)
[2020-06-15 05:32] LABS: Ferritin 391.8 ng/mL (8-388)
[2020-06-15 06:15] LABS: Blood Morphology Comment NOT SEEN (NOT SEEN); Platelet Estimate INCR
[2020-06-15] MEDS: INSULIN -REGULAR HUMAN 50 UNIT/0.5 ML ML SQ SCH ×4 (07:30→20:20)
[2020-06-15] MEDS: FAMOTIDINE 20 MG/2 ML VIAL IV SCH ×2 (08:32→20:18)
[2020-06-15] MEDS: ASCORBIC ACID 500 MG TABLET PO SCH ×3 (08:32→20:19)
[2020-06-15] MEDS: METHYLPREDNISOLONE 125 MG INJ IV SCH ×2 (08:33→20:18)
[2020-06-15] MEDS: ZINC SULFATE 220 MG CAP PO SCH (08:33)
[2020-06-15] MEDS: APIXABAN 5 MG TABLET PO SCH ×2 (08:33→20:18)
[2020-06-15] MEDS: VITAMIN D 1000 UNIT TAB PO SCH (08:33)
[2020-06-15] MEDS: THIAMINE HCL 100 MG TABLET PO SCH ×2 (08:34→20:19)
--- NOTE | 2020-06-15 14:18 | P.PN ---
Subjective Date of Service: 06/15/20 Chief Complaint: respiratory failure from hunter virus Subjective: Improving (slowly improving, feeling better, less anxious yesteday) Review of Systems 10-point ROS is otherwise unremarkable Physical Examination - Vital Signs Temperature: 97.9 F Blood Pressure: 130/80 Pulse: 73 Respirations: 18 Pulse Ox (%): 91 Assessment & Plan Physician Review Additional Text: Physical Exam General: Alert, NAD HEENT: sclera anicteric, normal conjunctiva Respiratory: nonlabored respirations on HFNC Cardiovascular: No edema, Regular rate/rhythm, Normal S1 S2 Gastrointestinal: Soft and benign, Non-distended, No tenderness Musculoskeletal: No swelling, No tenderness Integumentary: No rashes, No erythema Neurological: Normal speech, anxious Problem List Acute respiratory failure with hypoxia secondary to COVID-19 pneumonia Hyperglycemia, steroid induced Anxiety -continue IV solumedrol, vitamin supplements; s/p remdesevir -wean O2 as tolerated -Pulm consulted -continue eliquis for VTE prophylaxis -titrate insulin as needed for hyperglycemia -worsened by steroids -ferritin improving, CRP slightly elevated -hopefully can trial nasal cannula 6L today -ativan for anxiety VTE: eliquis Code: full Dispo: anticipate dc home, will need home O2, likely ~3 days Time Spent Managing Pts Care (In Minutes): 35
[2020-06-15] MEDS: MELATONIN 5 MG TABLET PO SCH (20:19)
[2020-06-16] MEDS: INSULIN -REGULAR HUMAN 50 UNIT/0.5 ML ML SQ SCH ×4 (07:30→20:48)
[2020-06-16] MEDS: FAMOTIDINE 20 MG/2 ML VIAL IV SCH ×2 (07:53→20:45)
[2020-06-16] MEDS: THIAMINE HCL 100 MG TABLET PO SCH ×2 (07:54→20:45)
[2020-06-16] MEDS: VITAMIN D 1000 UNIT TAB PO SCH (07:54)
[2020-06-16] MEDS: METHYLPREDNISOLONE 125 MG INJ IV SCH ×2 (07:54→20:45)
[2020-06-16] MEDS: ZINC SULFATE 220 MG CAP PO SCH (07:54)
[2020-06-16] MEDS: APIXABAN 5 MG TABLET PO SCH ×2 (07:55→20:44)
[2020-06-16] MEDS: ASCORBIC ACID 500 MG TABLET PO SCH ×3 (07:55→20:45)
--- NOTE | 2020-06-16 13:49 | P.PN ---
Subjective Date of Service: 06/16/20 Chief Complaint: respiratory failure from hunter virus Subjective: Improving (slowly improving, O2 down to 60% fio2 last night, occasional panic attacks, concentrating on every second of the pulse ox) Review of Systems 10-point ROS is otherwise unremarkable Physical Examination - Vital Signs Temperature: 97.5 F Blood Pressure: 138/84 Pulse: 83 Respirations: 16 Pulse Ox (%): 91 Assessment & Plan Physician Review Additional Text: Physical Exam General: Alert, NAD HEENT: sclera anicteric, normal conjunctiva Respiratory: nonlabored respirations on HFNC Cardiovascular: No edema, Regular rate/rhythm, Normal S1 S2 Gastrointestinal: Soft and benign, Non-distended, No tenderness Musculoskeletal: No swelling, No tenderness Integumentary: No rashes, No erythema Neurological: Normal speech, anxious Problem List Acute respiratory failure with hypoxia secondary to COVID-19 pneumonia Hyperglycemia, steroid induced Anxiety -continue IV solumedrol, vitamin supplements; s/p remdesevir; pulm following -wean O2 as tolerated -continue eliquis for VTE prophylaxis -titrate insulin as needed for hyperglycemia -worsened by steroids -hopefully can trial nasal cannula 6L today -discussed breathing techniques, ways to pre-occupy her mind, continue ativan for anxiety VTE: eliquis Code: full Dispo: anticipate dc home, will need home O2, likely a few more days. Time Spent Managing Pts Care (In Minutes): 35
[2020-06-16] MEDS: LORazepam 2 MG/ML VIAL IV PRN (15:53)
[2020-06-16] MEDS: MELATONIN 5 MG TABLET PO SCH (20:44)
[2020-06-17 04:03] LABS: Absolute Lymphocytes (CBC) 0.3 K/uL (0.7-4.9); Lymphocytes % 1.8 % (15.3-44.8); MPV 8.4 fL (7.6-11.3); RBC Red Blood Cell Count 4.86 M/uL (3.86-4.86)
[2020-06-17 04:13] LABS: C-Reactive Protein 23.7 mg/L (<3.00); Ferritin 333.2 ng/mL (8-388); Magnesium 2.3 mg/dL (1.8-2.4)
[2020-06-17] MEDS: INSULIN -REGULAR HUMAN 50 UNIT/0.5 ML ML SQ SCH ×4 (07:30→21:16)
--- NOTE | 2020-06-17 07:31 | RAD REPORT ---
EXAM DESCRIPTION: RAD - Chest Single View - 06/17/2020 6:17 am CLINICAL HISTORY: hypoxia, covidpneumonia COMPARISON: Portable June 09 TECHNIQUE: AP portable chest image was obtained 06/17/2020 6:17 am . FINDINGS: Bilateral pneumonia changes are present throughout the right lung field and in the lower l eft lung field. Right lung field is not substantially different. Left lung field has shown no improve ment and may be slightly worse. Any differential since the June 09 is minimal. Upper left lung field remains clear. Heart and vasculature are normal. No measurable pleural effusion and no pneumothorax. No acute bony abnormality seen. No acute aortic findings suspected. IMPRESSION: Bilateral pneumonia pattern not substantially different from comparison.
[2020-06-17] MEDS: METHYLPREDNISOLONE 125 MG INJ IV SCH ×2 (09:05→21:15)
[2020-06-17] MEDS: THIAMINE HCL 100 MG TABLET PO SCH ×2 (09:05→21:15)
[2020-06-17] MEDS: FAMOTIDINE 20 MG/2 ML VIAL IV SCH ×2 (09:05→21:15)
[2020-06-17] MEDS: ASCORBIC ACID 500 MG TABLET PO SCH ×3 (09:06→21:15)
[2020-06-17] MEDS: VITAMIN D 1000 UNIT TAB PO SCH (09:07)
[2020-06-17] MEDS: ZINC SULFATE 220 MG CAP PO SCH (09:07)
[2020-06-17] MEDS: APIXABAN 5 MG TABLET PO SCH ×2 (09:08→21:14)
--- NOTE | 2020-06-17 16:17 | P.PN ---
Subjective Date of Service: 06/17/20 Chief Complaint: respiratory failure from hunter virus No major changes from yesterday. Patient is maintained on 95% FiO2 on high-flow oxygen. Physical Examination - Vital Signs Temperature: 97.9 F Blood Pressure: 129/84 Pulse: 84 Respirations: 18 Pulse Ox (%): 93 - Physical Exam General: Alert, In no apparent distress HEENT: Other (High-flow oxygen) Neck: JVD not distended Respiratory: Other (Nonlabored breathing) Cardiovascular: No edema, Regular rate/rhythm, Normal S1 S2 Gastrointestinal: Soft and benign, Non-distended Musculoskeletal: No swelling Integumentary: No rashes Neurological: Normal speech, Normal strength at 5/5 x4 extr, Cranial nerves 3-12 intact Assessment And Plan - Current Problems (Diagnosis) (1) Pneumonia due to COVID-19 virus Current Visit: Yes Status: Acute (2) Acute respiratory failure with hypoxia Current Visit: Yes Status: Acute (3) Hyperglycemia Current Visit: Yes Status: Acute Physician Review Additional Text: Problem List Acute respiratory failure with hypoxia secondary to COVID-19 pneumonia Hyperglycemia, steroid induced Anxiety -continue IV solumedrol, vitamin supplements; s/p remdesevir; s/p convalescent plasma -pulm is following -wean O2 as tolerated -continue eliquis for VTE prophylaxis -titrate insulin to cover steroid induced hyperglycemia -wean oxygen as tolerated. -incentive spirometry VTE: eliquis Code: full
[2020-06-17] MEDS: MELATONIN 5 MG TABLET PO SCH (21:14)
[2020-06-18] MEDS: VITAMIN D 1000 UNIT TAB PO SCH (08:03)
[2020-06-18] MEDS: METHYLPREDNISOLONE 125 MG INJ IV SCH ×2 (08:03→21:20)
[2020-06-18] MEDS: ASCORBIC ACID 500 MG TABLET PO SCH ×3 (08:03→21:19)
[2020-06-18] MEDS: ZINC SULFATE 220 MG CAP PO SCH (08:04)
[2020-06-18] MEDS: FAMOTIDINE 20 MG/2 ML VIAL IV SCH ×2 (08:04→21:20)
[2020-06-18] MEDS: THIAMINE HCL 100 MG TABLET PO SCH ×2 (08:05→21:20)
[2020-06-18] MEDS: APIXABAN 5 MG TABLET PO SCH ×2 (08:05→21:20)
[2020-06-18] MEDS: INSULIN -REGULAR HUMAN 50 UNIT/0.5 ML ML SQ SCH ×4 (08:05→21:20)
--- NOTE | 2020-06-18 17:24 | P.PN ---
Subjective Date of Service: 06/18/20 Chief Complaint: respiratory failure from hunter virus Patient now tolerate 75% FiO2 on high-flow oxygen. She looks anxious. Physical Examination - Vital Signs Temperature: 97.7 F Blood Pressure: 136/86 Pulse: 80 Respirations: 20 Pulse Ox (%): 91 - Physical Exam General: Alert, In no apparent distress Respiratory: Other (Nonlabored breathing) Cardiovascular: No edema, Regular rate/rhythm, Normal S1 S2 Gastrointestinal: Soft and benign, Non-distended Musculoskeletal: No swelling Integumentary: No rashes Neurological: Normal strength at 5/5 x4 extr Assessment And Plan - Current Problems (Diagnosis) (1) Pneumonia due to COVID-19 virus Current Visit: Yes Status: Acute (2) Acute respiratory failure with hypoxia Current Visit: Yes Status: Acute (3) Hyperglycemia Current Visit: Yes Status: Acute Physician Review Additional Text: Problem List Acute respiratory failure with hypoxia secondary to COVID-19 pneumonia Hyperglycemia, steroid induced Anxiety -continue IV solumedrol, vitamin supplements; s/p remdesevir; s/p convalescent plasma -pulm is following -wean off high-flow oxygen as tolerated. -continue eliquis for VTE prophylaxis -titrate insulin to cover steroid induced hyperglycemia -incentive spirometry VTE: eliquis Code: full
[2020-06-18] MEDS: MELATONIN 5 MG TABLET PO SCH (21:19)
[2020-06-19 05:00] LABS: Absolute Lymphocytes (CBC) 0.5 K/uL (0.7-4.9); Basophils % 0.2 % (0-1.3); Hematocrit 41.8 % (36.0-45.0); Lymphocytes % 2.4 % (15.3-44.8); MPV 8.3 fL (7.6-11.3); RBC Red Blood Cell Count 4.88 M/uL (3.86-4.86)
[2020-06-19 05:46] LABS: BUN Blood Urea Nitrogen 20 mg/dL (7-18); Bicarbonate 27 mmol/L (21-32); Glucose Level 149 mg/dL (74-106); Potassium 4.5 mmol/L (3.5-5.1); Sodium Level 142 mmol/L (136-145)
[2020-06-19] MEDS: INSULIN -REGULAR HUMAN 50 UNIT/0.5 ML ML SQ SCH ×4 (07:30→21:00)
[2020-06-19 08:36] LABS: Blood Morphology Comment NOT SEEN (NOT SEEN); Platelet Estimate ADEQ
[2020-06-19] MEDS ORDERED: LORAZEPAM 0.5 MG TABLET PO PRN (08:37)
--- NOTE | 2020-06-19 08:41 | P.PN ---
Subjective Date of Service: 06/19/20 Chief Complaint: respiratory failure from hunter virus Subjective: Improving (Patient is feeling better still very anxious oxygen was decrease is 65%) Review of Systems General: Weakness Respiratory: Shortness of Breath Physical Examination - Vital Signs Temperature: 97.4 F Blood Pressure: 142/88 Pulse: 71 Respirations: 20 Pulse Ox (%): 93 Assessment & Plan - Problems (Diagnosis) (1) Pneumonia due to COVID-19 virus Current Visit: Yes Status: Acute Plan: Respiratory failure from hunter virus continue with present therapy reduce dose of Solu-Medrol patient has significant anxiety advice to you use prone position ventilation as much as possible add low-dose aspirin
[2020-06-19] MEDS: VITAMIN D 1000 UNIT TAB PO SCH (09:00)
[2020-06-19] MEDS: ZINC SULFATE 220 MG CAP PO SCH (09:01)
[2020-06-19] MEDS: APIXABAN 5 MG TABLET PO SCH ×2 (09:01→21:02)
[2020-06-19] MEDS: THIAMINE HCL 100 MG TABLET PO SCH ×2 (09:01→21:02)
[2020-06-19] MEDS: ASCORBIC ACID 500 MG TABLET PO SCH ×3 (09:01→21:02)
[2020-06-19] MEDS: FAMOTIDINE 20 MG TAB PO SCH ×2 (09:04→21:03)
[2020-06-19] MEDS: METHYLPREDNISOLONE 40 MG INJ IV SCH ×2 (09:04→21:03)
[2020-06-19] MEDS: ASPIRIN EC 81 MG TAB PO SCH (09:05)
--- NOTE | 2020-06-19 12:12 | P.PN ---
Subjective Date of Service: 06/19/20 Chief Complaint: respiratory failure from hunter virus Patient quite anxious. Oxygen requirement seems to fluctuate. She is currently on 95% FiO2. Physical Examination - Vital Signs Temperature: 97.4 F Blood Pressure: 142/88 Pulse: 71 Respirations: 20 Pulse Ox (%): 93 - Physical Exam General: In no apparent distress, Other (Anxious) Respiratory: Other (Nonlabored breathing) Cardiovascular: No edema, Regular rate/rhythm, Normal S1 S2 Gastrointestinal: Soft and benign, Non-distended Musculoskeletal: No swelling Integumentary: No rashes Neurological: Other (No focal motor deficit.) Assessment And Plan - Current Problems (Diagnosis) (1) Pneumonia due to COVID-19 virus Current Visit: Yes Status: Acute (2) Acute respiratory failure with hypoxia Current Visit: Yes Status: Acute (3) Hyperglycemia Current Visit: Yes Status: Acute Physician Review Additional Text: Problem List Acute respiratory failure with hypoxia secondary to COVID-19 pneumonia Hyperglycemia, steroid induced Anxiety -continue IV steroid, vitamin supplements; -s/p remdesevir; s/p convalescent plasma -pulm is following -wean off high-flow oxygen as tolerated. -continue eliquis for VTE prophylaxis -insulin sliding scale for glucose management. -incentive spirometry VTE: eliquis Code: full
[2020-06-19] MEDS: MELATONIN 5 MG TABLET PO SCH (21:02)
[2020-06-20] MEDS: INSULIN -REGULAR HUMAN 50 UNIT/0.5 ML ML SQ SCH ×4 (07:30→21:00)
[2020-06-20] MEDS: VITAMIN D 1000 UNIT TAB PO SCH (08:06)
[2020-06-20] MEDS: ZINC SULFATE 220 MG CAP PO SCH (08:06)
[2020-06-20] MEDS: FAMOTIDINE 20 MG TAB PO SCH ×2 (08:06→21:58)
[2020-06-20] MEDS: METHYLPREDNISOLONE 40 MG INJ IV SCH ×2 (08:06→21:57)
[2020-06-20] MEDS: APIXABAN 5 MG TABLET PO SCH ×2 (08:07→21:58)
[2020-06-20] MEDS: ASCORBIC ACID 500 MG TABLET PO SCH ×3 (08:07→21:58)
[2020-06-20] MEDS: THIAMINE HCL 100 MG TABLET PO SCH ×2 (08:07→21:57)
[2020-06-20] MEDS: ASPIRIN EC 81 MG TAB PO SCH (08:07)
--- NOTE | 2020-06-20 08:28 | RAD REPORT ---
EXAM DESCRIPTION: Twin Single View06/20/2020 5:18 am CLINICAL HISTORY: Chest pain COMPARISON: June 17, 2020 FINDINGS: No significant change in the extensive bilateral pulmonary opacities. Heart is normal size IMPRESSION: No extensive change in bilateral pneumonia
--- NOTE | 2020-06-20 15:23 | P.PN ---
Subjective Date of Service: 06/20/20 Chief Complaint: respiratory failure from hunter virus High-flow oxygen weaned down to 65% FiO2. Physical Examination - Vital Signs Temperature: 96.9 F Blood Pressure: 120/82 Pulse: 100 Respirations: 20 Pulse Ox (%): 94 - Physical Exam General: Alert, In no apparent distress, Other (Anxious) Neck: JVD not distended Respiratory: Other (Nonlabored breathing) Cardiovascular: No edema, Regular rate/rhythm, Normal S1 S2 Gastrointestinal: Soft and benign, Non-distended Musculoskeletal: No swelling Integumentary: No rashes Neurological: Normal strength at 5/5 x4 extr Assessment And Plan - Current Problems (Diagnosis) (1) Pneumonia due to COVID-19 virus Current Visit: Yes Status: Acute (2) Acute respiratory failure with hypoxia Current Visit: Yes Status: Acute (3) Hyperglycemia Current Visit: Yes Status: Acute Physician Review Additional Text: Problem List Acute respiratory failure with hypoxia secondary to COVID-19 pneumonia Hyperglycemia, steroid induced Anxiety -continue IV steroid, vitamin supplements; -s/p remdesevir; s/p convalescent plasma -pulm is following -wean off high-flow oxygen as tolerated. -continue eliquis for VTE prophylaxis -insulin sliding scale for glucose management. VTE: eliquis Code: full
[2020-06-20] MEDS: MELATONIN 5 MG TABLET PO SCH (21:57)
[2020-06-21 04:04] LABS: Absolute Lymphocytes (CBC) 0.3 K/uL (0.7-4.9); Basophils % 0.2 % (0-1.3); Hematocrit 41.4 % (36.0-45.0); Lymphocytes % 1.8 % (15.3-44.8); MPV 9.1 fL (7.6-11.3); RBC Red Blood Cell Count 4.79 M/uL (3.86-4.86)
[2020-06-21 04:15] LABS: BUN Blood Urea Nitrogen 15 mg/dL (7-18); Bicarbonate 28 mmol/L (21-32); Glucose Level 180 mg/dL (74-106); Potassium 4.2 mmol/L (3.5-5.1); Sodium Level 142 mmol/L (136-145)
[2020-06-21] MEDS: INSULIN -REGULAR HUMAN 50 UNIT/0.5 ML ML SQ SCH ×4 (07:30→20:52)
[2020-06-21] MEDS: THIAMINE HCL 100 MG TABLET PO SCH ×2 (08:21→20:51)
[2020-06-21] MEDS: VITAMIN D 1000 UNIT TAB PO SCH (08:21)
[2020-06-21] MEDS: APIXABAN 5 MG TABLET PO SCH ×2 (08:21→20:51)
[2020-06-21] MEDS: ASCORBIC ACID 500 MG TABLET PO SCH ×3 (08:21→20:51)
[2020-06-21] MEDS: ASPIRIN EC 81 MG TAB PO SCH (08:21)
[2020-06-21] MEDS: METHYLPREDNISOLONE 40 MG INJ IV SCH ×2 (08:21→20:51)
[2020-06-21] MEDS: ZINC SULFATE 220 MG CAP PO SCH (08:21)
[2020-06-21] MEDS: FAMOTIDINE 20 MG TAB PO SCH ×2 (08:22→20:51)
--- NOTE | 2020-06-21 12:04 | P.PN ---
Subjective Date of Service: 06/21/20 Chief Complaint: respiratory failure from hunter virus Patient is improving gradually. She is not tolerating 55 percent FiO2. Physical Examination - Vital Signs Temperature: 97.6 F Blood Pressure: 130/86 Pulse: 88 Respirations: 24 Pulse Ox (%): 97 - Physical Exam General: Alert, In no apparent distress Neck: JVD not distended Respiratory: Other (No labored breathing) Cardiovascular: No edema, Regular rate/rhythm Gastrointestinal: Soft and benign, Non-distended Musculoskeletal: No swelling Integumentary: No rashes Neurological: Normal strength at 5/5 x4 extr Assessment And Plan - Current Problems (Diagnosis) (1) Pneumonia due to COVID-19 virus Current Visit: Yes Status: Acute (2) Acute respiratory failure with hypoxia Current Visit: Yes Status: Acute (3) Hyperglycemia Current Visit: Yes Status: Acute Physician Review Additional Text: Problem List Acute respiratory failure with hypoxia secondary to COVID-19 pneumonia Hyperglycemia, steroid induced Anxiety -continue IV steroid, vitamin supplements; -s/p remdesevir; s/p convalescent plasma -pulm is following -continue to wean off high-flow oxygen as tolerated. -continue eliquis for VTE prophylaxis -insulin sliding scale for glucose management. VTE: eliquis Code: full
[2020-06-21] MEDS: MELATONIN 5 MG TABLET PO SCH (20:51)
[2020-06-22] MEDS: INSULIN -REGULAR HUMAN 50 UNIT/0.5 ML ML SQ SCH ×4 (07:30→20:16)
[2020-06-22] MEDS: ASPIRIN EC 81 MG TAB PO SCH (08:50)
[2020-06-22] MEDS: METHYLPREDNISOLONE 40 MG INJ IV SCH ×2 (08:50→20:16)
[2020-06-22] MEDS: ZINC SULFATE 220 MG CAP PO SCH (08:51)
[2020-06-22] MEDS: THIAMINE HCL 100 MG TABLET PO SCH ×2 (08:51→20:15)
[2020-06-22] MEDS: VITAMIN D 1000 UNIT TAB PO SCH (08:51)
[2020-06-22] MEDS: ASCORBIC ACID 500 MG TABLET PO SCH ×3 (08:51→20:15)
[2020-06-22] MEDS: FAMOTIDINE 20 MG TAB PO SCH ×2 (08:51→20:15)
[2020-06-22] MEDS: APIXABAN 5 MG TABLET PO SCH ×2 (08:51→20:15)
--- NOTE | 2020-06-22 15:11 | P.PN ---
Subjective Date of Service: 06/22/20 Chief Complaint: respiratory failure from hunter virus Patient is improving gradually. She is not tolerating 55 percent FiO2 with flow rate of 28. Physical Examination - Vital Signs Temperature: 97.3 F Blood Pressure: 136/86 Pulse: 87 Respirations: 19 Pulse Ox (%): 90 - Physical Exam General: Alert, In no apparent distress Respiratory: Other (Nonlabored breathing) Cardiovascular: No edema, Regular rate/rhythm Gastrointestinal: Soft and benign, Non-distended Musculoskeletal: No swelling Integumentary: No rashes Neurological: Normal strength at 5/5 x4 extr Assessment And Plan - Current Problems (Diagnosis) (1) Pneumonia due to COVID-19 virus Current Visit: Yes Status: Acute (2) Acute respiratory failure with hypoxia Current Visit: Yes Status: Acute (3) Hyperglycemia Current Visit: Yes Status: Acute Physician Review Additional Text: Problem List Acute respiratory failure with hypoxia secondary to COVID-19 pneumonia Hyperglycemia, steroid induced Anxiety -continue IV steroid, vitamin supplements; -s/p remdesevir; s/p convalescent plasma -pulm is following -continue to wean off high-flow oxygen as tolerated. -continue eliquis for VTE prophylaxis -insulin sliding scale for glucose management. VTE: eliquis Code: full
[2020-06-22] MEDS: MELATONIN 5 MG TABLET PO SCH (20:15)
[2020-06-23 04:06] LABS: Absolute Lymphocytes (CBC) 0.7 K/uL (0.7-4.9); Basophils % 0.3 % (0-1.3); Hematocrit 40.7 % (36.0-45.0); Lymphocytes % 4.1 % (15.3-44.8); MPV 9.2 fL (7.6-11.3); RBC Red Blood Cell Count 4.73 M/uL (3.86-4.86)
[2020-06-23 04:26] LABS: BUN Blood Urea Nitrogen 17 mg/dL (7-18); Bicarbonate 28 mmol/L (21-32); Glucose Level 157 mg/dL (74-106); Potassium 3.9 mmol/L (3.5-5.1); Sodium Level 141 mmol/L (136-145)
[2020-06-23 05:18] LABS: Blood Morphology Comment NOT SEEN (NOT SEEN); Platelet Estimate ADEQ
[2020-06-23] MEDS ORDERED: POTASSIUM CL SA 10 MEQ TAB PO ONE (05:36)
[2020-06-23] MEDS: INSULIN -REGULAR HUMAN 50 UNIT/0.5 ML ML SQ SCH ×4 (07:30→22:00)
[2020-06-23] MEDS: APIXABAN 5 MG TABLET PO SCH ×2 (08:34→21:59)
[2020-06-23] MEDS: VITAMIN D 1000 UNIT TAB PO SCH (08:34)
[2020-06-23] MEDS: ASPIRIN EC 81 MG TAB PO SCH (08:34)
[2020-06-23] MEDS: ASCORBIC ACID 500 MG TABLET PO SCH ×3 (08:34→21:59)
[2020-06-23] MEDS: METHYLPREDNISOLONE 40 MG INJ IV SCH ×2 (08:34→22:00)
[2020-06-23] MEDS: THIAMINE HCL 100 MG TABLET PO SCH ×2 (08:36→21:59)
[2020-06-23] MEDS: FAMOTIDINE 20 MG TAB PO SCH ×2 (08:36→21:59)
[2020-06-23] MEDS: ZINC SULFATE 220 MG CAP PO SCH (08:36)
--- NOTE | 2020-06-23 12:41 | P.PN ---
Subjective Date of Service: 06/23/20 Chief Complaint: respiratory failure from hunter virus Subjective: Ambulating, Improving (Patient is doing better still complains of dyspnea on exertion stable on 4 L of nasal cannula oxygen) Review of Systems General: Weakness Respiratory: Shortness of Breath Physical Examination - Vital Signs Temperature: 97.2 F Blood Pressure: 139/94 Pulse: 77 Respirations: 28 Pulse Ox (%): 94 Assessment & Plan - Problems (Diagnosis) (1) Pneumonia due to COVID-19 virus Current Visit: Yes Status: Acute Plan: Patient is doing much better admitted with respiratory failure I have titrated down from 55% FiO2 2 8 L and then to now 2 4 L possible discharge home today setup for home O2 prednisone 20 b.i.d. for a week then 10 twice a day full anticoagulation for now with Eliquis as not covered consider aspirin follow with me in a week
--- NOTE | 2020-06-23 16:13 | P.PN ---
Subjective Date of Service: 06/23/20 Chief Complaint: respiratory failure from hunter virus Patient is improving gradually. She is now tolerating 8 L oxygen by nasal canula with SaO2 around 95% Physical Examination - Vital Signs Temperature: 98.2 F Blood Pressure: 122/79 Pulse: 81 Respirations: 26 Pulse Ox (%): 97 - Physical Exam General: Alert, In no apparent distress Respiratory: Other (No labored breathing.) Cardiovascular: No edema, Regular rate/rhythm Gastrointestinal: Soft and benign, Non-distended Musculoskeletal: No swelling Integumentary: No rashes Neurological: Normal strength at 5/5 x4 extr Assessment And Plan - Current Problems (Diagnosis) (1) Pneumonia due to COVID-19 virus Current Visit: Yes Status: Acute (2) Acute respiratory failure with hypoxia Current Visit: Yes Status: Acute (3) Hyperglycemia Current Visit: Yes Status: Acute Physician Review Additional Text: Problem List Acute respiratory failure with hypoxia secondary to COVID-19 pneumonia Hyperglycemia, steroid induced Anxiety -continue IV steroid, vitamin supplements; -s/p remdesevir; s/p convalescent plasma -pulm is following -patient not tolerating oxygen by nasal canula. -continue to wean oxygen as tolerated. -continue eliquis for VTE prophylaxis -insulin sliding scale for glucose management. VTE: eliquis Code: full Disp: Discharge to home once she is able to tolerate 4 L oxygen by nasal cannula.
[2020-06-23] MEDS: MELATONIN 5 MG TABLET PO SCH (21:59)
[2020-06-24 05:39] LABS: Absolute Lymphocytes (CBC) 0.7 K/uL (0.7-4.9); Basophils % 0.5 % (0-1.3); Hematocrit 42.9 % (36.0-45.0); MPV 9.8 fL (7.6-11.3); RBC Red Blood Cell Count 4.93 M/uL (3.86-4.86)
[2020-06-24 06:17] LABS: BUN Blood Urea Nitrogen 18 mg/dL (7-18); Bicarbonate 27 mmol/L (21-32); C-Reactive Protein < 29.00 mg/L (<3.00); Ferritin 355.5 ng/mL (8-388); Glucose Level 152 mg/dL (74-106); Potassium 4.2 mmol/L (3.5-5.1); Sodium Level 141 mmol/L (136-145)
[2020-06-24] MEDS: INSULIN -REGULAR HUMAN 50 UNIT/0.5 ML ML SQ SCH ×4 (07:30→21:00)
[2020-06-24] MEDS ORDERED: LORazepam 2 MG/ML VIAL IV PRN (08:52)
--- NOTE | 2020-06-24 09:58 | P.PN ---
Subjective Date of Service: 06/24/20 Chief Complaint: respiratory failure from hunter virus Subjective: Improving (down to 4L NC briefly yesterday but back up to 5L. Had anxiety / dyspneic episode last night. no other acute events. otherwise feeling better) Review of Systems 10-point ROS is otherwise unremarkable Physical Examination - Vital Signs Temperature: 98.5 F Blood Pressure: 053/93 Pulse: 90 Respirations: 22 Pulse Ox (%): 90 Assessment & Plan Physician Review Additional Text: Physical Exam: Gen: NAD, AAOx3, +anxious HEENT: normal conjunctiva, sclera anicteric Pulm: nonlabored respirations on 5L NC, SpO2: 87-92% CV: regular rate and rhythm Abd: soft, NTND Ext: no edema, no rash Problem List Acute respiratory failure with hypoxia secondary to COVID-19 pneumonia Hyperglycemia, steroid induced Anxiety -continue steroids (on prednisone now), vitamin supplements; -s/p remdesevir; s/p convalescent plasma -pulm is following -improving, down to 5L NC this morning; attempted to go down to 4L but SpO2 down to low-mid 80s while sitting -continue to wean oxygen as tolerated. -continue eliquis for VTE prophylaxis -insulin sliding scale for glucose management. VTE: eliquis Code: Full Dispo: home when tolerating 4L NC, anticipate tomorrow Time Spent Managing Pts Care (In Minutes): 35
[2020-06-24] MEDS: FAMOTIDINE 20 MG TAB PO SCH ×2 (10:24→21:49)
[2020-06-24] MEDS: THIAMINE HCL 100 MG TABLET PO SCH ×2 (10:24→21:50)
[2020-06-24] MEDS: ASPIRIN EC 81 MG TAB PO SCH (10:24)
[2020-06-24] MEDS: ASCORBIC ACID 500 MG TABLET PO SCH ×3 (10:24→21:49)
[2020-06-24] MEDS: ZINC SULFATE 220 MG CAP PO SCH (10:25)
[2020-06-24] MEDS: predniSONE 20 MG TAB PO SCH ×2 (10:25→21:49)
[2020-06-24] MEDS: VITAMIN D 1000 UNIT TAB PO SCH (10:25)
[2020-06-24] MEDS: APIXABAN 5 MG TABLET PO SCH ×2 (10:26→21:49)
[2020-06-24] MEDS: MELATONIN 5 MG TABLET PO SCH (21:49)
[2020-06-25] MEDS: INSULIN -REGULAR HUMAN 50 UNIT/0.5 ML ML SQ SCH ×4 (07:30→21:00)
[2020-06-25] MEDS: VITAMIN D 1000 UNIT TAB PO SCH (08:18)
[2020-06-25] MEDS: ZINC SULFATE 220 MG CAP PO SCH (08:18)
[2020-06-25] MEDS: APIXABAN 5 MG TABLET PO SCH ×2 (08:18→20:32)
[2020-06-25] MEDS: ASPIRIN EC 81 MG TAB PO SCH (08:18)
[2020-06-25] MEDS: ASCORBIC ACID 500 MG TABLET PO SCH ×3 (08:18→20:32)
[2020-06-25] MEDS: FAMOTIDINE 20 MG TAB PO SCH ×2 (08:18→20:32)
[2020-06-25] MEDS: predniSONE 20 MG TAB PO SCH ×2 (08:22→20:32)
[2020-06-25] MEDS: THIAMINE HCL 100 MG TABLET PO SCH ×2 (08:22→20:32)
--- NOTE | 2020-06-25 15:49 | P.PN ---
Subjective Date of Service: 06/25/20 Chief Complaint: respiratory failure from hunter virus Subjective: No new changes (mostly on 4L, but occasionally requiring up to 6L NC, with SOB, still with anxiety at times +BM, appetite is ok) Review of Systems 10-point ROS is otherwise unremarkable Physical Examination - Vital Signs Temperature: 97.9 F Blood Pressure: 119/88 Pulse: 100 Respirations: 19 Pulse Ox (%): 91 Assessment & Plan Physician Review Additional Text: Physical Exam: Gen: NAD, AAOx3 HEENT: normal conjunctiva, sclera anicteric Pulm: nonlabored respirations on 4L NC, SpO2: 85-90% CV: regular rate and rhythm Abd: soft, NTND Ext: no edema, no rash Problem List Acute respiratory failure with hypoxia secondary to COVID-19 pneumonia Hyperglycemia, steroid induced Anxiety -continue steroids (on prednisone now), vitamin supplements; -s/p remdesevir; s/p convalescent plasma -pulm is following -improving, down to 4L NC this morning; still requiring up to 6L NC at times -continue to wean oxygen as tolerated. -continue eliquis for VTE prophylaxis -insulin sliding scale for glucose management. VTE: eliquis Code: Full Dispo: home when tolerating 4L NC, discussed with patient, anticipate tomorrow SW/CM consulted for home O2 Time Spent Managing Pts Care (In Minutes): 35
[2020-06-25] MEDS: MELATONIN 5 MG TABLET PO SCH (20:32)
[2020-06-26] MEDS: INSULIN -REGULAR HUMAN 50 UNIT/0.5 ML ML SQ SCH ×2 (07:30→11:30)
[2020-06-26] MEDS: predniSONE 20 MG TAB PO SCH (08:29)
[2020-06-26] MEDS: ZINC SULFATE 220 MG CAP PO SCH (08:31)
[2020-06-26] MEDS: FAMOTIDINE 20 MG TAB PO SCH (08:31)
[2020-06-26] MEDS: APIXABAN 5 MG TABLET PO SCH (08:31)
[2020-06-26] MEDS: ASCORBIC ACID 500 MG TABLET PO SCH (08:31)
[2020-06-26] MEDS: VITAMIN D 1000 UNIT TAB PO SCH (08:31)
[2020-06-26] MEDS: ASPIRIN EC 81 MG TAB PO SCH (08:31)
[2020-06-26] MEDS: THIAMINE HCL 100 MG TABLET PO SCH (08:32)
[2020-06-26 10:22] VITALS: O2SAT 90
[2020-06-26 12:54] VITALS: BP 128/89; TEMP 98
--- NOTE | 2020-06-26 14:36 | P.DS ---
Admission Date: 06/09/20 Discharge Date: 06/26/20 Disposition: ROUTINE DISCHARGE Discharge Condition: GOOD Reason for Admission: respiratory failure from hunter virus Consultations: Pulmonology - Dr. Bailey Procedures: CXR (06/09): Moderate to marked bilateral pulmonary opacities may represent pulmonary edema or pneumonia CXR (06/17): Bilateral pneumonia pattern not substantially different from comparison. CXR (06/20): No extensive change in bilateral pneumonia Problem List Acute respiratory failure with hypoxia secondary to COVID-19 pneumonia Hyperglycemia, steroid induced Anxiety Brief History of Present Illness: 50-year-old woman with borderline diabetes and borderline hypertension presented to the emergency department with a complaint of shortness of breath of onset 3 days ago. Patient stated he tested positive for COVID 19 1 week ago. She developed fever, followed by loss of sense of smell and a hacking cough which resolved. She then developed shortness of breath 2 days later with became progressively worse. Her oxygen saturation on arrival was 36% on room air per report. Chest x-ray done in the emergency department demonstrated bilateral infiltrates. Patient was requiring high-flow oxygen in the ED and was saturating at 92 %. Patient given a dose of IV dexamethasone, IV Rocephin and Zithromax. She is admitted for further management. Hospital Course: She had a prolonged recovery for her COVID-19 pneumonia. She slowly improved with IV steroids, remdesevir, and convalescent plasma. On day of discharge she was maintaining SpO2 >90% on 3L NC at rest. She was able to stand and ambulate short distances with minimal hypoxic events and would rebound back to >90% quickly. Her hospitalization was complicated by significant anxiety and panic attacks. She would begin to feel short of breath and or see her SpO2 drop below 90% and begin to panic and hyperventilate. This also improved but still remained to a lesser extent at time of discharge. She was initially treated with low dose benzodiazepine but patient did not want any medications. She was counselled extensively on different activities to distract herself from her anxiety, as well as breathing techniques. She felt much better and was discharged home with prednisone, eliquis x 1month, vitamin supplementation, and home oxygen. Follow up with Dr. Bailey in ~1- week. Vital Signs/Physical Exam: Physical Exam: Gen: NAD, AAOx3, anxious HEENT: normal conjunctiva, sclera anicteric Pulm: nonlabored respirations on 3 LNC at rest, SpO2: 90-94% CV: regular rate and rhythm Abd: soft, NTND Ext: no edema, no rash Temp Pulse Resp BP Pulse Ox 98 F 82 18 128/89 92 06/26/20 12:00 06/26/20 12:00 06/26/20 12:00 06/26/20 12:00 06/26/20 12:00 Laboratory Data at Discharge: WBC 16.80 K/uL (4.3-10.9) H 06/24/20 04:40 Hgb 14.0 g/dL (12.0-15.0) 06/24/20 04:40 Hct 42.9 % (36.0-45.0) 06/24/20 04:40 Plt Count 375 K/uL (152-406) 06/24/20 04:40 PT 15.1 SECONDS (9.5-12.5) H 06/09/20 08:55 INR 1.31 06/09/20 08:55 APTT 34.3 SECONDS (24.3-36.9) 06/10/20 00:31 Sodium 141 mmol/L (136-145) 06/24/20 04:44 Potassium 4.2 mmol/L (3.5-5.1) 06/24/20 04:44 BUN 18 mg/dL (7-18) 06/24/20 04:44 Creatinine 0.58 mg/dL (0.55-1.3) 06/24/20 04:44 Glucose 152 mg/dL (74-106) H 06/24/20 04:44 Phosphorus 3.1 mg/dL (2.5-4.9) 06/10/20 03:07 Magnesium 2.3 mg/dL (1.8-2.4) 06/17/20 03:03 Total Bilirubin 0.7 mg/dL (0.2-1.0) 06/14/20 03:47 AST 17 U/L (15-37) 06/14/20 03:47 ALT 40 U/L (12-78) 06/14/20 03:47 Alkaline Phosphatase 50 U/L (45-117) 06/14/20 03:47 Triglycerides 141 mg/dL (<150) 06/10/20 03:07 Cholesterol 107 mg/dL (<200) 06/10/20 03:07 HDL Cholesterol 25 mg/dL (40-60) L 06/10/20 03:07 Cholesterol/HDL Ratio 4.28 06/10/20 03:07 Home Medications: Apixaban [Eliquis] 5 mg PO BID 30 Days #60 tablet 06/26/20 Ascorbic Acid [Vitamin C*] 1,000 mg PO TID 30 Days #180 tablet 06/26/20 Cholecalciferol (Vitamin D3) [Vitamin D 1000 Iu Tab*] 3,000 unit PO DAILY 30 Days #90 tab 06/26/20 Thiamine HCl [Vitamin B-1*] 200 mg PO BID 30 Days #120 tablet 06/26/20 Zinc Sulfate [Zinc Sulfate*] 220 mg PO DAILY 30 Days #30 cap 06/26/20 predniSONE [Prednisone*] 20 mg PO BID 14 Days #21 tab 06/26/20 New Medications: Apixaban [Eliquis] 5 mg PO BID 30 Days #60 tablet predniSONE [Prednisone*] 20 mg PO BID 14 Days #21 tab Thiamine HCl [Vitamin B-1*] 200 mg PO BID 30 Days #120 tablet Ascorbic Acid [Vitamin C*] 1,000 mg PO TID 30 Days #180 tablet Cholecalciferol (Vitamin D3) [Vitamin D 1000 Iu Tab*] 3,000 unit PO DAILY 30 Days #90 tab Zinc Sulfate [Zinc Sulfate*] 220 mg PO DAILY 30 Days #30 cap Physician Discharge Instructions: PROBLEM: Covid 19 Pneumonia GOAL: Clear understanding of disease process INSTRUCTIONS: You were found to have COVID-19 pneumonia. Discharged with vitamin supplements, blood thinner (eliquis), and steroids (prednisone). Please follow up with Dr. Bailey in ~1 week, call his office to schedule telephone appointment. Use home oxygen to maintaine oxygen level >90%. Diet: Regular Activity: As tolerated E-script sent to [facility] D[facility]: Home Oxygen Date Ordered: Name of Company: [employer] [place] Patient [phone] IMMUNIZATION Influenza Vaccine Indicated: Influenza Vaccine Given: Date Given: Pneumonia Vaccine Indicated: No Pneumonia Vaccine Given: Date Given: Diet: Regular Activity: Ad telly Followup: Mao Bailey MD [ACTIVE - CAN ADMIT] - 1 Week (dining car steward- call to schedule a telephone visit ) Yaniv Garrido MD [Primary Care Provider] - Time spent managing pt's care (in minutes): 35
== END 2020-06-26 15:00 | disposition home or self-care (01) | DRG 177 ==
LOC: ER 08:24 → ERHOLD 10:56 → 4TH 12:06 → 3RD-ICU 06-23 19:45
PROVIDERS: ADMIT Internal Medicine; ATTEND Hospitalist
PROC: XW033E5 Introduction of Remdesivir Anti-infective into Peripheral Vein, Percutaneous Approach, New Technology Group 5 (ICD-10-PCS; principal; 2020-06-09)
PROC: XW13325 Transfusion of Convalescent Plasma (Nonautologous) into Peripheral Vein, Percutaneous Approach, New Technology Group 5 (ICD-10-PCS; 2020-06-09)
PROC: 5A09557 Assistance with Respiratory Ventilation, Greater than 96 Consecutive Hours, Continuous Positive Airway Pressure (ICD-10-PCS; 2020-06-09)
DX: U07.1 COVID-19 (principal); J12.82 Pneumonia due to coronavirus disease 2019; J96.01 Acute respiratory failure with hypoxia; I10 Essential (primary) hypertension; F41.9 Anxiety disorder, unspecified; F41.0 Panic disorder [episodic paroxysmal anxiety]; E11.65 Type 2 diabetes mellitus with hyperglycemia; T38.0X5A Adverse effect of glucocorticoids and synthetic analogues, initial encounter; Z79.01 Long term (current) use of anticoagulants; Z79.52 Long term (current) use of systemic steroids; Z90.49 Acquired absence of other specified parts of digestive tract; Z79.899 Other long term (current) drug therapy
CPT/HCPCS: 36415; 36430; 71045; 80048; 80053; 80061; 80076; 82728; 82947; 83036; 83605; 83735; 83880; 84100; 84132; 84484; 85025; 85379; 85610; 85730; 86140; 86900; 86901; 86927; 87040; 93005; 94002; 94003; 94760; 96365; 96372; 96375; 99285; J0456; J0696; J1100; J1200; J2405; J2920; J2930; J7050; J7512

== ENCOUNTER 2024-11-19 12:45 | Emergency (ER) | payer OTHER ==
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
[2024-11-19 14:45] VITALS: BP 169/110; TEMP 97.8; O2SAT 98
== END 2024-11-19 14:35 | disposition home or self-care (01) ==
LOC: ER 12:45
DX: S50.812A Abrasion of left forearm, initial encounter (principal); S50.811A Abrasion of right forearm, initial encounter; S30.1XXA Contusion of abdominal wall, initial encounter; V40.5XXA Car driver injured in collision with pedestrian or animal in traffic accident, initial encounter
CPT/HCPCS: 71250; 74176; 99282